=== PATIENT | male | born 1955 | race Caucasian/White ===

== ENCOUNTER 2016-11-25 11:45 | Inpatient (IN) | payer OTHER ==
[2016-11-18 13:05] LABS: HEMATOCRIT 43.5 % (40.0-51.0); HEMOGLOBIN 14.9 g/dL (13.6-17.8)
[2016-11-18 13:19] LABS: CHLORIDE, SERUM 106 MMOL/L (96-112); CO2 (CARBON DIOXIDE) 29 MMOL/L (24-34); GFR AFRICAN AMERICAN 106 ML/MIN (>=60); GFR NON AFRICAN AMERICAN 91 ML/MIN (>=60); GLUCOSE, SERUM 91 MG/DL (60-99); POTASSIUM, SERUM 3.8 MMOL/L (3.5-5.3); SODIUM, SERUM 142 MMOL/L (135-148)
[2016-11-18 13:20] LABS: BUN (BLOOD UREA NITROGEN) 12 MG/DL (6-23)
[2016-11-18 13:55] LABS: ASCORBIC ACID (UR NOT ORDER) NEG (NEG); BILIRUBIN, URINE NEGATIVE (NEG); KETONE, URINE NEGATIVE (NEG); LEUKOCYTE ESTERASE(NOT OR NEG (NEG); WBC (NOT ORDERED) (RFLEX) < 1 (0-5)
--- NOTE | ~2016-11-25 | OP ---
Record Of Operation [facility] [address] [place]. [address] NAME: JOSSY VIDALES JR : 53 STATUS : ADM IN PAT#: [id number] AGE: 61 ADM/REG DATE : 11/25/16 MR#: [id number] REPORT SERV DATE: 11/26/16 DICTATED BY: HOLLEY XAVIER DATE: 11/26/16 REPORT STATUS : Draft TRANSCRIBED BY: MODL DATE: 11/26/16 DATE OF PROCEDURE: 11/25/2016 SURGEON: Holley Xavier MD. TITLE OF OPERATION: 1. Robot-assisted laparoscopic radical prostatectomy. 2. Robot-assisted Laparoscopic extended pelvic lymph node dissection. INDICATIONS: Mr. Vidales is a 61-year-old male, with intermediate risk for prostate cancer. He has been counseled on his risk including active surveillance, surgery, and radiation therapy. He is here for robotic-assisted laparoscopic radical prostatectomy. ANESTHESIA: General. COMPLICATIONS: None. IMPLANTS: 1. #10 round ATUL drain. 2. An 18-Palestinian Verma catheter. SPECIMEN: 1. Prostate and seminal vesicles. 2. Bilateral pelvic lymph nodes. 3. Anterior fat pad. COMPLICATIONS: None. NARRATIVE: The patient was brought to the operating room, identified by his wristband. General anesthesia was induced and Ancef was given for preoperative antibiotics. He was placed in dorsal lithotomy position and secured to the bed with pads and tape. He was prepped and draped in sterile fashion. Ancef was given for preoperative antibiotics. His abdomen was insufflated to pressure of 15 mmHg using a Veress needle. A supraumbilical incision was made, the abdomen was entered using an 8 mm robotic trocar. The abdomen was inspected, there were no significant adhesions. A standard X-Y robotic port placement was performed, with two 8 mm ports on left side of the body, and one 8 mm port on the right side of the body. A 12 mm port was placed in the right lower quadrant, and a 5 mm port was placed in the right upper quadrant for pest controller assistant port. A 16-Palestinian Verma catheter was placed into his bladder. The balloon was inflated with 10 mL of sterile water. The patient was then placed in Trendelenburg and the robot was docked. Then using the robot, I then incised the peritoneum overlying the seminal vesicles and vas deferens. These structures were dissected out bilaterally. The vas deferens were clipped and divided. The pedicle to the seminal vesicles were clipped and divided bilaterally. Once all these structures were dissected clear, they were lifted anteriorly. Denonvilliers fascia was sharply divided and reflected inferiorly onto the rectum. This dissection was carried from the base of the prostate to the apex under direct vision. Next, the bladder was dropped off the anterior Record Of Operation [address] [place]. [address] NAME: JOSSY VIDALES JR : 53 STATUS : ADM IN PAT#: [id number] AGE: 61 ADM/REG DATE : 11/25/16 MR#: [id number] REPORT SERV DATE: 11/26/16 DICTATED BY: HOLLEY XAVIER DATE: 11/26/16 REPORT STATUS : Draft TRANSCRIBED BY: FRANKY DATE: 11/26/16 abdominal wall using electrocautery. Care was taken to control bleeding from the medial and median umbilical ligaments. The bladder was then dropped to expose the pubic bone and prostate. Fiber fatty tissue overlying the prostate was then removed with bipolar cautery and scissors, and sent to the pathologist as anterior fat pad. Next, the bilateral endopelvic fascia were divided sharply. The levator fibers were swept off the prostate bilaterally. The puboprostatic ligaments were sharply divided bilaterally. The dorsal vein was precisely identified. Dorsal vein was then stapled with a 30 mm reticulating endovascular stapler. Residual dorsal vein tissue was divided with scissors exposing the urethra. Next, a 3-0 V-Loc suture was placed through the dorsal vein to control residual bleeding. This suture was then placed through the pubic symphysis as a suspensory stitch for the urethra. Next, a high release was performed on the neurovascular bundle bilaterally, given his intermediate risk disease, I did not get beneath the veins, but rather within the veins themselves with a small amount of tissue on the prostate. Next, a bladder sparing operation was performed. Fibrofatty tissue surrounding the bladder neck was controlled with bipolar cautery and scissors. The bladder neck was precisely entered anteriorly. The bladder was dissected free off the base of the prostate bilaterally. There was a small median lobe. The bladder mucosa was sharply incised posteriorly along the median lobe with care taken to leave the median lobe with the prostate. This dissection was carried through the detrusor fibers. The posterior dissection was carried inferiorly to identify the previously dissected out seminal vesicles and vas deferens, which were delivered into the surgical field. Next, the pedicles to the prostate were clipped and divided bilaterally. A retrograde nerve sparing operation was performed bilaterally. The nerves were swept off the prostate bilaterally, with care taken not to get into the prostate itself. Next, the urethra was precisely divided leaving adequate urethral length. The posterior striated sphincter was then divided. The prostate was then free of all attachments and placed into an EndoCatch bag. Next, attention was turned to the pelvic lymph node dissection. All fibrofatty tissue beneath the obturator vein was removed, care was taken to clip the lymphatics proximally and distally. The obturator nerve was spared. All fibrofatty tissue overlying the internal iliac vessels were also clipped, divided, and removed. A similar procedure was performed on the left side. The lymphatic tissues were placed into EndoCatch bag. It will be sent to pathology as bilateral pelvic lymph nodes. The pelvis was then copiously irrigated with sterile water. There was no bleeding. The posterior striated sphincter was reconstructed with a running 3-0 V-Loc suture in the manner described by Forrest. Next, the vesicourethral anastomosis was performed using two interlocked V-Loc sutures. Once this was completed, an 18-Palestinian Verma catheter was placed into the bladder and the balloon was inflated with 15 mL of water. The bladder was irrigated and anastomosis was watertight. The robot was then undocked. The pest controller assistant port was closed with a 0 Vicryl suture using Jr-Eduardo device. A #10 round ATUL drain was placed through the left lateral most robotic port. The ports were removed under direct vision. The supraumbilical incision was enlarged at the skin and fascia levels. The prostate and lymph nodes were removed and sent to pathology for analysis. The wounds were irrigated clear. The fascia was closed with interrupted 0 Monocryl suture in a figure-of- eight fashion. Marcaine 0.25% was used for anesthesia. A TAP block was placed preoperatively. The skin was closed with 4-0 Monocryl and Dermabond dressing was placed. The patient was awoken from anesthesia and transferred to the recovery room in stable condition. There were no complications. Urine was clear upon leaving the operating room. Record Of Operation [facility] [address] [id number] NAME: JOSSY VIDALES JR : 53 STATUS : ADM IN PAT#: [id number] AGE: 61 ADM/REG DATE : 11/25/16 MR#: [id number] REPORT SERV DATE: 11/26/16 DICTATED BY: HOLLEY XAVIER DATE: 11/26/16 REPORT STATUS : Draft TRANSCRIBED BY: FRANKY DATE: 11/26/16 GLO/FRANKY Holley Xavier MD / [id number] CC: Holley Xavier MD
[~2016-11-25 11:45] MED LIST: COREG12 PO; FLOMAX4 PO; PRIN20 PO
[2016-11-25 17:57] LABS: HEMATOCRIT 38.9 % (40.0-51.0); HEMOGLOBIN 13.5 g/dL (13.6-17.8)
[2016-11-25 18:06] LABS: BUN (BLOOD UREA NITROGEN) 13 MG/DL (6-23); CALCIUM, SERUM 8.4 MG/DL (8.5-10.4); CHLORIDE, SERUM 107 MMOL/L (96-112); CO2 (CARBON DIOXIDE) 28 MMOL/L (24-34); CREATININE 0.89 MG/DL (0.70-1.30); GFR AFRICAN AMERICAN 106 ML/MIN (>=60); GFR NON AFRICAN AMERICAN 92 ML/MIN (>=60); SODIUM, SERUM 143 MMOL/L (135-148)
[2016-11-25 18:07] LABS: GLUCOSE, SERUM 150 MG/DL (60-99)
[2016-11-26] MEDS ORDERED: CIP5 PO (08:54)
[2016-11-26] MEDS ORDERED: DSS PO (08:55)
[2016-11-26] MEDS ORDERED: PCET PO (08:55)
[2016-11-26] MEDS ORDERED: VIAGRA100 MG PO (08:56)
[2016-11-26 09:49] LABS: POTASSIUM, SERUM 3.9 MMOL/L (3.5-5.3); SODIUM, SERUM 140 MMOL/L (135-148)
[2016-11-26 10:00] LABS: BUN (BLOOD UREA NITROGEN) 16 MG/DL (6-23); CALCIUM, SERUM 8.4 MG/DL (8.5-10.4); CHLORIDE, SERUM 103 MMOL/L (96-112); CO2 (CARBON DIOXIDE) 25 MMOL/L (24-34); CREATININE 1.07 MG/DL (0.70-1.30); GFR AFRICAN AMERICAN 86 ML/MIN (>=60); GFR NON AFRICAN AMERICAN 74 ML/MIN (>=60); GLUCOSE, SERUM 170 MG/DL (60-99)
== END 2016-11-26 16:01 | disposition home or self-care (01) | DRG 708 ==
LOC: SDC/OF 11:45 → 4SO 19:29
PROVIDERS: Urology
PROC: 0VT34ZZ Resection of Bilateral Seminal Vesicles, Percutaneous Endoscopic Approach (ICD-10-PCS; principal; 2016-11-25 14:30)
PROC: 07TC4ZZ Resection of Pelvis Lymphatic, Percutaneous Endoscopic Approach (ICD-10-PCS; principal; 2016-11-25 14:30)
PROC: 0VBQ4ZZ Excision of Bilateral Vas Deferens, Percutaneous Endoscopic Approach (ICD-10-PCS; principal; 2016-11-25 14:30)
PROC: 0VT04ZZ Resection of Prostate, Percutaneous Endoscopic Approach (ICD-10-PCS; principal; 2016-11-25 14:30)
PROC: 8E0W4CZ Robotic Assisted Procedure of Trunk Region, Percutaneous Endoscopic Approach (ICD-10-PCS; principal; 2016-11-25 14:30)
DX: C61 Malignant neoplasm of prostate (principal); I10 Essential (primary) hypertension
CPT/HCPCS: 36415; 80048; 81001; 82570; 85014; 85018; 86850; 86900; 86901; 88304; 88307; 88309; 93005; A9270-GY; J0461; J0690; J1885; J2250; J2370; J2405; J2710; J2795; J3010